=== PATIENT | female | born 1980 | race Caucasian/White ===

== ENCOUNTER 2022-08-13 00:55 | Emergency (ER) | payer SELFPAY ==
[~2022-08-13] VITALS: Ht 170.2 cm; Wt 79.5 kg
[2022-08-13 01:06] VITALS: BP 102/79
[2022-08-13] MEDS ORDERED: normal saline 1000ML IV soln IVB ONE ×2 (01:10→04:30)
[2022-08-13] MEDS ORDERED: ondansetron/PF 4mg/2ml inj IV ONE (01:10)
== END 2022-08-13 05:04 | disposition home or self-care (01) ==
LOC: ER 00:56
DX: F10.129 Alcohol abuse with intoxication, unspecified (principal); R11.10 Vomiting, unspecified; Z79.899 Other long term (current) drug therapy; Y90.9 Presence of alcohol in blood, level not specified
CPT/HCPCS: 36415; 80320; 96361; 96374; 99284; J2405; J7030